=== PATIENT | male | born 1975 | race Hispanic/Latino ===

== ENCOUNTER 2017-05-06 10:14 | Emergency (ER) | payer SELFPAY ==
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
[2017-05-06] MEDS ORDERED: NACL 0.9% 1000 ML 1,000 ML IV ONE (23:11)
[2017-05-07] MEDS ORDERED: ATIVAN IV ONE (00:29)
[2017-05-07] MEDS ORDERED: ATIVAN ONE (00:39)
[2017-05-07 00:56] VITALS: BP 133/85
== END 2017-05-07 01:12 | disposition home or self-care (01) ==
LOC: ED 10:14
DX: S00.12XA Contusion of left eyelid and periocular area, initial encounter (principal); S00.31XA Abrasion of nose, initial encounter; F10.20 Alcohol dependence, uncomplicated; Y08.89XA Assault by other specified means, initial encounter; Y93.9 Activity, unspecified; Y99.9 Unspecified external cause status; Y92.89 Other specified places as the place of occurrence of the external cause
CPT/HCPCS: 70450; 70486; 96361; 96374; 99284; J2060; J7030

== ENCOUNTER 2017-08-02 01:35 | Emergency (ER) | payer OTHER ==
[2017-08-02 03:29] LABS: Basophils % (Auto) 0.7 % (0.0-1.8); Eosinophils # (Auto) 0.1 K/mm3 (0.0-0.4); Eosinophils % (Auto) 1.3 % (0.0-4.3); Hematocrit 42.5 % (35.5-45.6); Hemoglobin 14.7 gm/dl (11.8-15.2); Lymphocytes # (Auto) 1.5 K/mm3 (1.2-5.4); Lymphocytes % (Auto) 24.2 % (13.4-35.0); Mean Corpuscular HGB Conc 35 % (32-34); Mean Corpuscular Hemoglobin 37 pg (28-32); Mean Corpuscular Volume 107 fl (84-94); Monocytes # (Auto) 0.7 K/mm3 (0.0-0.8); Monocytes % (Auto) 11.3 % (0.0-7.3); Platelet Count 46 K/mm3 (140-440); Red Blood Count 3.98 M/mm3 (3.65-5.03); Red Cell Distribution Width 14.2 % (13.2-15.2)
[2017-08-02] MEDS ORDERED: ZOFRAN ODT PO ONE (03:33)
[2017-08-02] MEDS ORDERED: ZOFRAN ODT ONE (03:36)
--- NOTE | 2017-08-02 03:37 | XRay Report ---
FINAL REPORT PROCEDURE: XR RIBS UNI W PA CHEST 3+V RT TECHNIQUE: RIGHT rib radiographs, 3 views of the ribs, including PA chest. HISTORY: right rib pain COMPARISON: No prior studies are available for comparison. FINDINGS: Heart: Normal. Mediastinum/Vessels: Normal. Lungs: Normal. Pleural space: Normal. Pneumothorax: None. Bony thorax/ribs: There are fractures of right ribs numbers 7 and 8. IMPRESSION: Fractures of right ribs numbers 7 and 8. There is no pneumothorax or pulmonary contusion.
[2017-08-02 03:48] LABS: BUN/Creatinine Ratio 20; Blood Urea Nitrogen 12 mg/dL (9-20); Calcium 9.2 mg/dL (8.4-10.2); Hemolysis Index 12
[2017-08-02] MEDS ORDERED: MORPHINE IV ONE (07:11)
[2017-08-02] MEDS ORDERED: ATIVAN IV ONE (07:11)
[2017-08-02] MEDS ORDERED: XANAX PO ONE (07:12)
[2017-08-02] MEDS ORDERED: VITAMIN B-1 100 MG, FOLVITE 1 MG, INFUVITE 10 ML in NACL 0.9% 1000 ML 1,000 ML IV ONE (08:30)
--- NOTE | 2017-08-02 09:14 | Emergency Department Report ---
HPI - General Chief Complaint: Pain General Time Seen by Provider: 08/02/17 06:55 - HPI HPI: 41 year old male with a past medical history of alcohol abuse and thrombocytopenia. Presents to the hospital complaining of pain to right ribs 4 days. Patient presents with bruising to his right lower ribs but repeatedly denies fall but states he sleeps on a hard floor. Pain is sharp, constant, worse and movement, palpation, inspiration or rate is 7/10 in intensity. Patient has a history of alcohol abuse with last drink at 11 PM last night. Patient states the past 1-2 days he has had occasional blood blood-tinged sputum. Denies fever, trauma, fall, headache, abdominal pain, or neck pain. Staff noted positive EtOH on breath upon arrival to the ED ED Past Medical Hx - Past Medical History Additional medical history: Thrombocytopenia. alcohol abuse - Surgical History Past Surgical History?: No - Social History Smoking Status: Never Smoker Substance Use Type: None - Medications Home Medications: Home Medications Medication Instructions Recorded Confirmed Last Taken Type Folic Acid 1 mg PO DAILY 08/02/17 08/02/17 Unknown History HYDROcodone/APAP 5-325 [Tabor 1 each PO Q6HR PRN #15 tablet 08/02/17 Unknown Rx 5/325] ED Review of Systems ROS: Stated complaint: COUGHING Other details as noted in HPI Comment: All other systems reviewed and negative Other: Constitutional: No fevers chills Eyes: No eye pain visual changes ENT: No ear pain or throat pain Neck: Denies pain Respiratory: Denies wheezing shortness of breath Cardiovascular: As per HPI GI: Denies abdominal pain, nausea, vomiting, diarrhea : Denies dysuria Musculoskeletal: Denies back pain Skin: Denies rash, lesions, erythema Neurologic: Denies headache, numbness, weakness Psychiatric: Denies suicidal ideation, hallucinations Physical Exam - Physical Exam Vital Signs: Vital Signs 08/02/17 08/02/17 08/02/17 02:41 04:30 04:45 Temperature 97.5 F L Pulse Rate 117 H 99 H 130 H Respiratory 20 15 21 Rate Blood Pressure 149/111 117/84 117/84 Blood Pressure [Left] O2 Sat by Pulse 97 94 Oximetry 08/02/17 08/02/17 08/02/17 05:00 05:15 05:30 Temperature Pulse Rate 97 H 95 H 99 H Respiratory 13 14 27 H Rate Blood Pressure 107/67 107/67 95/56 Blood Pressure [Left] O2 Sat by Pulse Oximetry 08/02/17 08/02/17 08/02/17 05:45 06:45 07:05 Temperature 98.9 F Pulse Rate 97 H 105 H 108 H Respiratory 16 15 18 Rate Blood Pressure 95/56 92/57 Blood Pressure 100/65 [Left] O2 Sat by Pulse 97 Oximetry 08/02/17 08/02/17 08/02/17 07:16 07:30 08:00 Temperature Pulse Rate Respiratory Rate Blood Pressure 108/73 104/73 Blood Pressure [Left] O2 Sat by Pulse 93 95 94 Oximetry 08/02/17 08/02/17 08/02/17 08:15 08:31 09:00 Temperature Pulse Rate 109 H 90 Respiratory 16 16 14 Rate Blood Pressure 127/70 91/62 Blood Pressure [Left] O2 Sat by Pulse 92 92 Oximetry Physical Exam: General: No limitations, patient is alert in no acute distress Head exam: Atraumatic, normocephalic Eyes exam: Normal appearance ENT: Moist mucous membrane, normal oropharynx Neck exam: Normal inspection, full range of motion, no meningismus nontender Respiratory exam: Clear to auscultation bilateral, no wheezes, rales, crackles Cardiovascular: Normal rate and rhythm, bruising to her right lower ribs with tenderness to palpation Abdomen: Soft, nondistended, and nontender, with normal bowel sounds, no rebound, or guarding Extremity: Full range of motion normal inspection no deformity Back: Normal Inspection, full range of motion, no tenderness Neurologic: Alert, oriented x3, cranial nerves intact, no motor or sensory deficit Psychiatric: normal affect, normal mood Skin: Warm, dry, intact ED Course Vital Signs 08/02/17 08/02/17 08/02/17 02:41 04:30 04:45 Temperature 97.5 F L Pulse Rate 117 H 99 H 130 H Respiratory 20 15 21 Rate Blood Pressure 149/111 117/84 117/84 Blood Pressure [Left] O2 Sat by Pulse 97 94 Oximetry 08/02/17 08/02/17 08/02/17 05:00 05:15 05:30 Temperature Pulse Rate 97 H 95 H 99 H Respiratory 13 14 27 H Rate Blood Pressure 107/67 107/67 95/56 Blood Pressure [Left] O2 Sat by Pulse Oximetry 08/02/17 08/02/17 08/02/17 05:45 06:45 07:05 Temperature 98.9 F Pulse Rate 97 H 105 H 108 H Respiratory 16 15 18 Rate Blood Pressure 95/56 92/57 Blood Pressure 100/65 [Left] O2 Sat by Pulse 97 Oximetry 08/02/17 08/02/17 08/02/17 07:16 07:30 08:00 Temperature Pulse Rate Respiratory Rate Blood Pressure 108/73 104/73 Blood Pressure [Left] O2 Sat by Pulse 93 95 94 Oximetry 08/02/17 08/02/17 08/02/17 08:15 08:31 09:00 Temperature Pulse Rate 109 H 90 Respiratory 16 16 14 Rate Blood Pressure 127/70 91/62 Blood Pressure [Left] O2 Sat by Pulse 92 92 Oximetry - Reevaluation(s) Reevaluation #1: 08/02/17 10:18 Patient treated in the ED with Xanax, morphine, Zofran, and banana bag. Pain and tachycardia improved with ED treatment. No signs of acute alcohol withdrawal at this time ED Medical Decision Making - Lab Data Result diagrams: 08/02/17 03:18 08/02/17 03:18 Lab Results 08/02/17 08/02/17 Range/Units 03:18 03:18 WBC 6.2 (4.5-11.0) K/mm3 RBC 3.98 (3.65-5.03) M/mm3 Hgb 14.7 (11.8-15.2) gm/dl Hct 42.5 (35.5-45.6) % MCV 107 H (84-94) fl MCH 37 H (28-32) pg MCHC 35 H (32-34) % RDW 14.2 (13.2-15.2) % Plt Count 46 L (140-440) K/mm3 Lymph % (Auto) 24.2 (13.4-35.0) % [place] % (Auto) 11.3 H (0.0-7.3) % Eos % (Auto) 1.3 (0.0-4.3) % Baso % (Auto) 0.7 (0.0-1.8) % Lymph # 1.5 (1.2-5.4) K/mm3 [place] # 0.7 (0.0-0.8) K/mm3 Eos # 0.1 (0.0-0.4) K/mm3 Baso # 0.0 (0.0-0.1) K/mm3 Seg Neutrophils % 62.5 (40.0-70.0) % Seg Neutrophils # 3.9 (1.8-7.7) K/mm3 Sodium 144 (137-145) mmol/L Potassium 4.1 (3.6-5.0) mmol/L Chloride 98.3 (98-107) mmol/L Carbon Dioxide 25 (22-30) mmol/L Anion Gap 25 mmol/L BUN 12 (9-20) mg/dL Creatinine 0.6 L (0.8-1.5) mg/dL Estimated GFR > 60 ml/min BUN/Creatinine Ratio 20 % Glucose 91 (75-100) mg/dL Calcium 9.2 (8.4-10.2) mg/dL - Radiology Data Radiology results: report reviewed Chest x-ray with right rib series: Fracture of the right ribs 7 and 8 with no pneumothorax or pulmonary contusion - Medical Decision Making Patient appears to be sober, alert, and oriented at time of my evaluation. He continues to deny trauma or pain to other areas of his body. Patient has positive right rib fractures without long findings and has no signs of tachypnea or hypoxia. Tachycardia improved with benzos, IV pain medication, and IV fluids. Patient received banana bag. Patient provided incentive spirometer with teaching to be continued at home - Differential Diagnosis fracture, contusion, sprain Critical Care Time: No Critical care attestation.: If time is entered above; I have spent that time in minutes in the direct care of this critically ill patient, excluding procedure time. ED Disposition Clinical Impression: Ribs, multiple fractures, Thrombocytopenia, Alcohol abuse Disposition: DC-01 TO HOME OR SELFCARE Is pt being admited?: No Does the pt Need Aspirin: No Condition: Stable Instructions: Rib Fracture (ED), Abuse of Alcohol (ED) Additional Instructions: Take the medication as needed for pain. Use the incentive spirometer as instructed. Follow up with the doctor or clinic provided. Return is symptoms worsen Prescriptions: HYDROcodone/APAP 5-325 [Tabor 5/325] 1 each PO Q6HR PRN #15 tablet PRN Reason: Pain Referrals: [facility] [Provider Group] - 3-5 Days MD Peter [Other] - 3-5 Days (for help with alcohol abuse ) Time of Disposition: 10:22
[2017-08-02 10:24] VITALS: BP 100/64
== END 2017-08-02 10:38 | disposition home or self-care (01) ==
LOC: ED 01:35
DX: S22.41XA Multiple fractures of ribs, right side, initial encounter for closed fracture (principal); D69.6 Thrombocytopenia, unspecified; X58.XXXA Exposure to other specified factors, initial encounter; Y93.89 Activity, other specified; Y92.89 Other specified places as the place of occurrence of the external cause; Y99.8 Other external cause status
CPT/HCPCS: 36415; 71101; 80048; 85025; 96365; 96366; 96375; 99284; J2270; J3411; J7030; Q0162

== ENCOUNTER 2017-08-03 17:04 | Inpatient (IN) | payer OTHER ==
[2017-08-03 18:35] LABS: Basophils % (Auto) 0.7 % (0.0-1.8); Eosinophils % (Auto) 0.7 % (0.0-4.3); Hematocrit 37.8 % (35.5-45.6); Hemoglobin 12.8 gm/dl (11.8-15.2); Lymphocytes # (Auto) 0.8 K/mm3 (1.2-5.4); Lymphocytes % (Auto) 15.7 % (13.4-35.0); Mean Corpuscular HGB Conc 34 % (32-34); Mean Corpuscular Hemoglobin 37 pg (28-32); Mean Corpuscular Volume 109 fl (84-94); Monocytes # (Auto) 0.5 K/mm3 (0.0-0.8); Monocytes % (Auto) 10.2 % (0.0-7.3); Red Blood Count 3.46 M/mm3 (3.65-5.03); Red Cell Distribution Width 14.1 % (13.2-15.2)
[2017-08-03 18:37] LABS: Platelet Count 38 K/mm3 (140-440)
[2017-08-03 18:56] LABS: Alanine Aminotransferase 82 units/L (7-56); Albumin 4.6 g/dL (3.9-5); BUN/Creatinine Ratio 13; Blood Urea Nitrogen 8 mg/dL (9-20); Calcium 8.9 mg/dL (8.4-10.2); Hemolysis Index 6
[2017-08-03 20:27] LABS: Bilirubin,Urine NEG (Negative); Blood,Urine SM (Negative); Color,Urine Yellow (Yellow); Nitrite,Urine NEG (Negative); Protein,Urine <15 mg/dL mg/dL (Negative); Urobilinogen,Urine < 2.0 mg/dL (<2.0)
[2017-08-03 20:28] LABS: RBC,Urine < 1.0 /HPF (0.0-6.0); WBC,Urine < 1.0 /HPF (0.0-6.0)
[2017-08-04] MEDS ORDERED: ATIVAN IV ONE (06:48)
[2017-08-04] MEDS ORDERED: ATIVAN IV PRN ×4 (06:48→09:40)
[2017-08-04] MEDS ORDERED: VITAMIN B-1 100 MG, FOLVITE 1 MG, INFUVITE 10 ML in NACL 0.9% 1000 ML 1,000 ML IV ONE (06:48)
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
--- NOTE | 2017-08-04 07:38 | Cat Scan Report ---
CT scan of head without IV contrast: History: History of EtOH. Findings: Ventricles are normal in size and midline in location. Mild volume loss. No evidence of acute ischemia, hemorrhage or mass. No extra-axial fluid collection. Normal brainstem and cerebellum. Normal sinuses and master air cells. Impression: No acute intracranial abnormality.
--- NOTE | 2017-08-04 07:39 | Cat Scan Report ---
CT scan of chest with IV contrast: History: History of EtOH, bruising. Thoracic or ecchymosis. Findings: No endobronchial or mediastinal mass. No mediastinal, hilar or axillary adenopathy. Subcentimeter lymph nodes are identified in the mediastinum probably reactive. No pleural pericardial effusion. Normal lung parenchyma. No discrete nodularity consolidation or pneumothorax. Impression: Essentially negative CT scan of chest. Incidentally noted fatty liver.
--- NOTE | 2017-08-04 07:41 | Cat Scan Report ---
CT scan of abdomen and pelvis with IV contrast: History: History of EtOH bruising. Findings: A fatty liver. Normal gallbladder. Normal pancreas and spleen. Normal adrenals. Hypodensity in right kidney measuring 1.7 cm in diameter suggestive of cyst. Normal bladder. No free intraperitoneal fluid. No evidence of adenopathy. Normal aorta. No evidence of appendicitis or diverticulitis. Gaseous colon with moderate volume stool in colon. Impression: Fatty liver. Cyst right kidney.
[2017-08-04 08:12] LABS: Magnesium 1.3 mg/dL (1.7-2.3)
[2017-08-04] MEDS ORDERED: MAGNESIUM SULFATE 2GM/50ML 2 GM/50 ML BAG IV ONE (08:24)
[2017-08-04] MEDS ORDERED: TYLENOL PO PRN (09:37)
[2017-08-04] MEDS ORDERED: DULCOLAX PR PRN (09:37)
[2017-08-04] MEDS ORDERED: MORPHINE IV PRN ×2 (09:37)
[2017-08-04] MEDS ORDERED: ZOFRAN IV PRN (09:37)
[2017-08-04] MEDS ORDERED: NORCO 5/325 PO PRN (09:37)
[2017-08-04] MEDS ORDERED: MILK OF MAGNESIA PO PRN (09:37)
--- NOTE | 2017-08-04 09:37 | History and Physical Report ---
History of Present Illness Date of examination: 08/04/17 Date of admission: 08/04/2017 Chief complaint: Chief complaint: Ecchymosis all over. 2) EtOH dependence. History of present illness: History of Present Illness:42-year-old male comes in for ecchymosis all over his body. Patient has been drinking about 4-6 drinks every day for the past few months. Patient recently had trauma with and right-sided fractures. Ecchymosis has been happening spontaneously. No trauma. Has been drinking on a regular basis moderate to heavily.No shortness of breath.slightly anxious. Past Medical History Previous Medical History?: Yes Additional medical history: Thrombocytopenia. alcohol abuse - Surgical History Past Surgical History?: No - Social History Smoking Status: Never Smoker Substance Use Type: Alcohol Family history:hypertension - Medications Home Medications: Home Medications Medication Instructions Recorded Confirmed Last Taken Type Folic Acid 1 mg PO DAILY 08/02/17 08/02/17 Unknown History HYDROcodone/APAP 5-325 [[place] 1 each PO Q6HR PRN #15 tablet 08/02/17 Unknown Rx 5/325] Medications and Allergies Allergies Allergy/AdvReac Type Severity Reaction Status Date / Time No Known Allergies Allergy Verified 08/03/17 18:12 Home Medications Medication Instructions Recorded Confirmed Last Taken Type Folic Acid 1 mg PO DAILY 08/02/17 08/04/17 Unknown History HYDROcodone/APAP 5-325 [[place] 1 each PO Q6HR PRN #15 tablet 08/02/17 08/04/17 Unknown Rx 5/325] Active Meds: Active Medications Thiamine HCl 100 mg/ Folic Acid 1 mg/ Multivitamins/Minerals 10 ml/ Sodium Chloride 1,011.2 mls @ 250 mls/hr IV ONCE.ED ONE Stop: 08/04/17 10:50 Last Admin: 08/04/17 07:42 Dose: 250 mls/hr Lorazepam (Ativan) 2 mg IV Q1HR PRN PRN Reason: CIWA-Ar 8-15 Lorazepam (Ativan) 4 mg IV Q1HR PRN PRN Reason: CIWA-Ar 16-25 Lorazepam (Ativan) 4 mg IV Q15MIN PRN PRN Reason: CIWA-Ar >25 Review of Systems All systems: negative Hematologic/Lymphatic: easy bruising Exam - Constitutional Vitals: Temp Pulse Resp BP Pulse Ox 99.2 F 100 H 13 138/91 96 08/04/17 07:36 08/04/17 08:00 08/04/17 08:00 08/04/17 08:00 08/04/17 08:00 General appearance: Present: no acute distress, well-nourished - EENT Eyes: Present: PERRL ENT: hearing intact, clear oral mucosa - Neck Neck: Present: supple, normal ROM - Respiratory Respiratory effort: normal Respiratory: bilateral: CTA - Cardiovascular Heart rate: 70 Rhythm: regular (70) Heart Sounds: Present: S1 & S2. Absent: rub, click - Extremities Extremities: no ischemia, pulses intact, pulses symmetrical, No edema Peripheral Pulses: within normal limits - Abdominal General gastrointestinal: Present: soft, non-tender, non-distended, normal bowel sounds Male genitourinary: Present: normal - Rectal Rectal Exam: deferred - Integumentary Integumentary: Present: clear, warm, dry, erythema (ecchymosis all over) - Musculoskeletal Musculoskeletal: gait normal, strength equal bilaterally - Psychiatric Psychiatric: appropriate mood/affect, intact judgment & insight - Neurologic Neurologic: CNII-XII intact, moves all extremities - Allied Health Allied health notes reviewed: nursing, case management Results - Labs CBC & Chem 7: 08/03/17 18:18 08/03/17 18:18 Labs: Laboratory Last Values WBC 5.0 K/mm3 (4.5-11.0) 08/03/17 18:18 RBC 3.46 M/mm3 (3.65-5.03) L 08/03/17 18:18 Hgb 12.8 gm/dl (11.8-15.2) 08/03/17 18:18 Hct 37.8 % (35.5-45.6) 08/03/17 18:18 MCV 109 fl (84-94) H 08/03/17 18:18 MCH 37 pg (28-32) H 08/03/17 18:18 MCHC 34 % (32-34) 08/03/17 18:18 RDW 14.1 % (13.2-15.2) 08/03/17 18:18 Plt Count 38 K/mm3 (140-440) L 08/03/17 18:18 Lymph % (Auto) 15.7 % (13.4-35.0) 08/03/17 18:18 [place] % (Auto) 10.2 % (0.0-7.3) H 08/03/17 18:18 Eos % (Auto) 0.7 % (0.0-4.3) 08/03/17 18:18 Baso % (Auto) 0.7 % (0.0-1.8) 08/03/17 18:18 Lymph # 0.8 K/mm3 (1.2-5.4) L 08/03/17 18:18 [place] # 0.5 K/mm3 (0.0-0.8) 08/03/17 18:18 Eos # 0.0 K/mm3 (0.0-0.4) 08/03/17 18:18 Baso # 0.0 K/mm3 (0.0-0.1) 08/03/17 18:18 Seg Neutrophils % 72.7 % (40.0-70.0) H 08/03/17 18:18 Seg Neutrophils # 3.6 K/mm3 (1.8-7.7) 08/03/17 18:18 Sodium 140 mmol/L (137-145) 08/03/17 18:18 Potassium 4.1 mmol/L (3.6-5.0) 08/03/17 18:18 Chloride 96.4 mmol/L (98-107) L 08/03/17 18:18 Carbon Dioxide 26 mmol/L (22-30) 08/03/17 18:18 Anion Gap 22 mmol/L 08/03/17 18:18 BUN 8 mg/dL (9-20) L 08/03/17 18:18 Creatinine 0.6 mg/dL (0.8-1.5) L 08/03/17 18:18 Estimated GFR > 60 ml/min 08/03/17 18:18 BUN/Creatinine Ratio 13 % 08/03/17 18:18 Glucose 112 mg/dL (75-100) H 08/03/17 18:18 Calcium 8.9 mg/dL (8.4-10.2) 08/03/17 18:18 Magnesium 1.30 mg/dL (1.7-2.3) L 08/04/17 07:30 Total Bilirubin 0.80 mg/dL (0.1-1.2) 08/03/17 18:18 AST 168 units/L (5-40) H 08/03/17 18:18 ALT 82 units/L (7-56) H 08/03/17 18:18 Alkaline Phosphatase 82 units/L (35-129) 08/03/17 18:18 Total Creatine Kinase 224 units/L (55-170) H 08/04/17 07:30 Total Protein 6.8 g/dL (6.3-8.2) 08/03/17 18:18 Albumin 4.6 g/dL (3.9-5) 08/03/17 18:18 Albumin/Globulin Ratio 2.1 % 08/03/17 18:18 Urine Color Yellow (Yellow) 08/03/17 Unknown Urine Turbidity Clear (Clear) 08/03/17 Unknown Urine pH 5.0 (5.0-7.0) 08/03/17 Unknown Ur Specific [place] 1.005 (1.003-1.030) 08/03/17 Unknown Urine Protein <15 mg/dl mg/dL (Negative) 08/03/17 Unknown Urine Glucose (UA) Neg mg/dL (Negative) 08/03/17 Unknown Urine Ketones Neg mg/dL (Negative) 08/03/17 Unknown Urine Blood Sm (Negative) 08/03/17 Unknown Urine Nitrite Neg (Negative) 08/03/17 Unknown Urine Bilirubin Neg (Negative) 08/03/17 Unknown Urine Urobilinogen < 2.0 mg/dL (<2.0) 08/03/17 Unknown Ur Leukocyte Esterase Neg (Negative) 08/03/17 Unknown Urine WBC (Auto) < 1.0 /HPF (0.0-6.0) 08/03/17 Unknown Urine RBC (Auto) < 1.0 /HPF (0.0-6.0) 08/03/17 Unknown Blood Type A POSITIVE 08/03/17 18:25 Antibody Screen Negative 08/03/17 18:25 - Imaging and Cardiology Chest x-ray: report reviewed CT scan - abdomen: report reviewed (fatty liver right kidney cyst) CT scan - chest: report reviewed (no acute findings) CT Scan - head: report reviewed (no acute findings) Assessment and Plan Advance Directives: Yes (full code) VTE prophylaxis?: Mechanical Contraindication Mechanical VTE Prophylaxis: Contraindicated Plan of care discussed with patient/family: Yes - Patient Problems (1) Thrombocytopenia Current Visit: Yes Status: Acute Plan to address problem: secondary to EtOH dependence and bone marrow suppression. Hematology consulted. No platelet transfusion at this point unless patient has active bleeding. Monitor platelet count (2) Alcohol withdrawal Current Visit: Yes Status: Acute Qualifiers: Complication of substance-induced condition: with delirium Qualified Code(s ): F10.231 - Alcohol dependence with withdrawal delirium Plan to address problem: patient has a chance of developing delirium tremens. CIWA protocol initiated. IV Protonix initiated.Mental health consult requested for possible detox from alcohol (3) Transaminitis Current Visit: Yes Status: Acute Plan to address problem: secondary to alcohol. Acute hepatitis profile orderedwhich I expected to be normal (4) Alcohol dependence Current Visit: Yes Status: Chronic Qualifiers: Substance use status: uncomplicated Qualified Code(s): F10.20 - Alcohol dependence, uncomplicated Plan to address problem: patient counseled May need psychiatric facility admission for detox from alcohol (5) DVT prophylaxis Current Visit: Yes Status: Acute Plan to address problem: SCDs only
[2017-08-04] MEDS: FOLVITE PO SCH (10:21)
[2017-08-04] MEDS: LOVENOX SUB-Q SCH (10:22)
[2017-08-04 10:28] LABS: INR 0.92 (0.87-1.13); Magnesium 1.8 mg/dL (1.7-2.3)
[2017-08-04 10:29] LABS: Partial Thromboplastin Time 28.7 Sec. (24.2-36.6)
--- NOTE | 2017-08-04 12:05 | Consultation ---
History of Present Illness - Reason for Consult Consult date: 08/04/17 Reason for consult: Mental Health Evaluation Requesting physician: SOLIS AGUILAR - Chief Complaint Chief complaint: "I like alcohol" - History of Present Psychiatric Illness This is a 42-year-old white male. The patient recently was seen in this department for reevaluation of rib pain, and was presumptively diagnosed with multiple right-sided rib fractures. Psychiatry was consulted to see patient ( possible alcohol abuse). Today patient is calm and cooperative during the assessment. He stated that he do not remember how he injured his ribs. He did say he was drinking "heavy" the day the injury occurred. He stated that he been drinking alcohol for 20 plus years. He stated that he drink everyday. He stated that he drink alcohol because he like the taste. He denies self medicating with alcohol to mask a mood do (bipolar/depression). He stated that he would like to stop drinking because he is aware the damage it cause to the body. He denies sleep disturbance and a poor appetite. He denies SI/HI's and AVH's. He denies recreational drug use. Medications and Allergies Allergies Allergy/AdvReac Type Severity Reaction Status Date / Time No Known Allergies Allergy Verified 08/03/17 18:12 Home Medications Medication Instructions Recorded Confirmed Last Taken Type Folic Acid 1 mg PO DAILY 08/02/17 08/04/17 Unknown History HYDROcodone/APAP 5-325 [[place] 1 each PO Q6HR PRN #15 tablet 08/02/17 08/04/17 Unknown Rx 5/325] Active Meds: Active Medications Acetaminophen (Tylenol) 650 mg PO Q4H PRN PRN Reason: Pain MILD(1-3)/Fever >100.5/[place] Acetaminophen/Hydrocodone Bitart ([place] 5/325) 1 each PO Q6HR PRN PRN Reason: Pain Bisacodyl (Dulcolax) 10 mg CO QDAY PRN PRN Reason: Constipation unrelieved by MOM Enoxaparin Sodium (Lovenox) 40 mg SUB-Q QDAY JOHN Last Admin: 08/04/17 10:22 Dose: 40 mg Folic Acid (Folvite) 1 mg PO DAILY [facility] Last Admin: 08/04/17 10:21 Dose: 1 mg Dextrose/Sodium Chloride (D5ns) 1,000 mls @ 100 mls/hr IV DIRECT JOHN Lorazepam (Ativan) 2 mg IV Q1HR PRN PRN Reason: CIWA-Ar 8-15 Lorazepam (Ativan) 4 mg IV Q1HR PRN PRN Reason: CIWA-Ar 16-25 Lorazepam (Ativan) 4 mg IV Q15MIN PRN PRN Reason: CIWA-Ar >25 Lorazepam (Ativan) 2 mg IV Q1H PRN PRN Reason: CIWA-Ar 8-15 Magnesium Hydroxide (Milk Of Magnesia) 30 ml PO Q4H PRN PRN Reason: Constipation Morphine Sulfate (Morphine) 2 mg IV Q4H PRN PRN Reason: Pain, Moderate (4-6) Morphine Sulfate (Morphine) 4 mg IV Q4H PRN PRN Reason: Pain , Severe (7-10) Ondansetron HCl (Zofran) 4 mg IV Q8H PRN PRN Reason: N/V unrelieved by Reglan Past psychiatric history - Past Medical History Past Medical History: other (Recently Dx with 2 fx ribs) Past Surgical History: No surgical history - past Psychiatric treatment and history psychiatric treatment history: Denies a psy hx and fam psy hx. - Social History Social history: Lives alone Mental Status Exam - Vital signs Last Vital Signs Temp 99.2 F 08/04/17 07:36 Pulse 87 08/04/17 10:31 Resp 14 08/04/17 10:31 BP 128/85 08/04/17 10:31 Pulse Ox 96 08/04/17 10:31 - Exam Narrative exam: MSE: Appearance: calm, cooperative Behavior: good eye contact Speech: regular rate and tone Mood: "okay" Affect: congruent to mood Thought Process: circumstantial Thought Content: denies SI/HI's and AVH's Motor Activity: ambulatory Cognition: A/Ox3 Insight: fair Judgment: fair Results Result Diagrams: 08/03/17 18:18 08/03/17 18:18 Abnormal lab results 08/03/17 08/03/17 08/04/17 Range/Units 18:18 18:18 07:30 RBC 3.46 L (3.65-5.03) M/mm3 MCV 109 H (84-94) fl MCH 37 H (28-32) pg Plt Count 38 L (140-440) K/mm3 [place] % (Auto) 10.2 H (0.0-7.3) % Lymph # 0.8 L (1.2-5.4) K/mm3 Seg Neutrophils % 72.7 H (40.0-70.0) % Chloride 96.4 L (98-107) mmol/L BUN 8 L (9-20) mg/dL Creatinine 0.6 L (0.8-1.5) mg/dL Glucose 112 H (75-100) mg/dL Phosphorus (2.5-4.5) mg/dL Magnesium 1.30 L (1.7-2.3) mg/dL AST 168 H (5-40) units/L ALT 82 H (7-56) units/L Total Creatine Kinase 224 H (55-170) units/L 08/04/17 Range/Units 09:53 RBC (3.65-5.03) M/mm3 MCV (84-94) fl MCH (28-32) pg Plt Count (140-440) K/mm3 [place] % (Auto) (0.0-7.3) % Lymph # (1.2-5.4) K/mm3 Seg Neutrophils % (40.0-70.0) % Chloride (98-107) mmol/L BUN (9-20) mg/dL Creatinine (0.8-1.5) mg/dL Glucose (75-100) mg/dL Phosphorus 2.20 L (2.5-4.5) mg/dL Magnesium (1.7-2.3) mg/dL AST (5-40) units/L ALT (7-56) units/L Total Creatine Kinase (55-170) units/L All other labs normal. Assessment and Plan Assessment and plan: Impression: Alcohol Use DO. Today patient is calm and cooperative during the assessment. Mild tremors noted during the assessment. Elevated AST/ALT. PLT 38 trending down. DDx: R/O MDD Recommendation/Plan: Continue CIWA. Patient given outpatient rehab services for [facility].
[2017-08-04] MEDS: D5NS 1,000 ML IV SCH ×2 (13:36→22:19)
--- NOTE | 2017-08-04 17:37 | Hem/Onc Consultation ---
History of Present Illness - Reason for Consult Consult date: 08/04/17 - History of Present Illness dictated follow counts hold off transfusion unless plts below 20 or active bleeding Past History Past Medical History: other (Recently Dx with 2 fx ribs) Past Surgical History: No surgical history Social history: Lives alone Medications and Allergies Allergies Allergy/AdvReac Type Severity Reaction Status Date / Time No Known Allergies Allergy Verified 08/03/17 18:12 Home Medications Medication Instructions Recorded Confirmed Last Taken Type Folic Acid 1 mg PO DAILY 08/02/17 08/04/17 Unknown History HYDROcodone/APAP 5-325 [Motley 1 each PO Q6HR PRN #15 tablet 08/02/17 08/04/17 Unknown Rx 5/325] Active Meds: Active Medications Acetaminophen (Tylenol) 650 mg PO Q4H PRN PRN Reason: Pain MILD(1-3)/Fever >100.5/NELSON Acetaminophen/Hydrocodone Bitart (Motley 5/325) 1 each PO Q6HR PRN PRN Reason: Pain Bisacodyl (Dulcolax) 10 mg MA QDAY PRN PRN Reason: Constipation unrelieved by MOM Enoxaparin Sodium (Lovenox) 40 mg SUB-Q QDAY [facility] Last Admin: 08/04/17 10:22 Dose: 40 mg Folic Acid (Folvite) 1 mg PO DAILY [facility] Last Admin: 08/04/17 10:21 Dose: 1 mg Dextrose/Sodium Chloride (D5ns) 1,000 mls @ 100 mls/hr IV DIRECT [facility] Last Admin: 08/04/17 13:36 Dose: 100 mls/hr Lorazepam (Ativan) 2 mg IV Q1HR PRN PRN Reason: CIWA-Ar 8-15 Lorazepam (Ativan) 4 mg IV Q1HR PRN PRN Reason: CIWA-Ar 16-25 Lorazepam (Ativan) 4 mg IV Q15MIN PRN PRN Reason: CIWA-Ar >25 Lorazepam (Ativan) 2 mg IV Q1H PRN PRN Reason: CIWA-Ar 8-15 Magnesium Hydroxide (Milk Of Magnesia) 30 ml PO Q4H PRN PRN Reason: Constipation Morphine Sulfate (Morphine) 2 mg IV Q4H PRN PRN Reason: Pain, Moderate (4-6) Morphine Sulfate (Morphine) 4 mg IV Q4H PRN PRN Reason: Pain , Severe (7-10) Ondansetron HCl (Zofran) 4 mg IV Q8H PRN PRN Reason: N/V unrelieved by Reglan Exam - Constitutional Vitals: Last Vital Signs Temp 99.7 F H 08/04/17 15:11 Pulse 112 H 08/04/17 15:11 Resp 20 08/04/17 15:11 BP 126/92 08/04/17 15:11 Pulse Ox 95 08/04/17 15:11 Results - Labs lab Results: Laboratory Results - last 24 hr 08/03/17 08/03/17 08/03/17 18:18 18:18 18:25 WBC 5.0 RBC 3.46 L Hgb 12.8 Hct 37.8 MCV 109 H MCH 37 H MCHC 34 RDW 14.1 Plt Count 38 L Lymph % (Auto) 15.7 [place] % (Auto) 10.2 H Eos % (Auto) 0.7 Baso % (Auto) 0.7 Lymph # 0.8 L Ida # 0.5 Eos # 0.0 Baso # 0.0 Seg Neutrophils % 72.7 H Seg Neutrophils # 3.6 PT INR APTT Sodium 140 Potassium 4.1 Chloride 96.4 L Carbon Dioxide 26 Anion Gap 22 BUN 8 L Creatinine 0.6 L Estimated GFR > 60 BUN/Creatinine Ratio 13 Glucose 112 H Calcium 8.9 Phosphorus Magnesium Total Bilirubin 0.80 AST 168 H ALT 82 H Alkaline Phosphatase 82 Ammonia Total Creatine Kinase Total Protein 6.8 Albumin 4.6 Albumin/Globulin Ratio 2.1 Urine Color Urine Turbidity Urine pH Ur Specific [place] Urine Protein Urine Glucose (UA) Urine Ketones Urine Blood Urine Nitrite Urine Bilirubin Urine Urobilinogen Ur Leukocyte Esterase Urine WBC (Auto) Urine RBC (Auto) Blood Type A POSITIVE Antibody Screen Negative 08/03/17 08/04/17 08/04/17 Unknown 07:30 09:53 WBC RBC Hgb Hct MCV MCH MCHC RDW Plt Count Lymph % (Auto) [place] % (Auto) Eos % (Auto) Baso % (Auto) Lymph # [place]da # Eos # Baso # Seg Neutrophils % Seg Neutrophils # PT 12.8 INR 0.92 APTT 28.7 Sodium Potassium Chloride Carbon Dioxide Anion Gap BUN Creatinine Estimated GFR BUN/Creatinine Ratio Glucose Calcium Phosphorus Magnesium 1.30 L Total Bilirubin AST ALT Alkaline Phosphatase Ammonia Total Creatine Kinase 224 H Total Protein Albumin Albumin/Globulin Ratio Urine Color Yellow Urine Turbidity Clear Urine pH 5.0 Ur Specific [place] 1.005 Urine Protein <15 mg/dl Urine Glucose (UA) Neg Urine Ketones Neg Urine Blood Sm Urine Nitrite Neg Urine Bilirubin Neg Urine Urobilinogen < 2.0 Ur Leukocyte Esterase Neg Urine WBC (Auto) < 1.0 Urine RBC (Auto) < 1.0 Blood Type Antibody Screen 08/04/17 08/04/17 09:53 09:53 WBC RBC Hgb Hct MCV MCH MCHC RDW Plt Count Lymph % (Auto) [place]da % (Auto) Eos % (Auto) Baso % (Auto) Lymph # [place] # Eos # Baso # Seg Neutrophils % Seg Neutrophils # PT INR APTT Sodium Potassium Chloride Carbon Dioxide Anion Gap BUN Creatinine Estimated GFR BUN/Creatinine Ratio Glucose Calcium Phosphorus 2.20 L Magnesium 1.80 Total Bilirubin AST ALT Alkaline Phosphatase Ammonia 38.0 Total Creatine Kinase Total Protein Albumin 4.0 Albumin/Globulin Ratio Urine Color Urine Turbidity Urine pH Ur Specific [place] Urine Protein Urine Glucose (UA) Urine Ketones Urine Blood Urine Nitrite Urine Bilirubin Urine Urobilinogen Ur Leukocyte Esterase Urine WBC (Auto) Urine RBC (Auto) Blood Type Antibody Screen
[2017-08-04 21:58] LABS: Iron 195 ug/dL (49-181)
[2017-08-04 23:16] LABS: Total Iron Binding Capacity 199 mcg/dL (250-450)
[2017-08-05 05:32] LABS: Hematocrit 34.3 % (35.5-45.6); Hemoglobin 11.9 gm/dl (11.8-15.2); Mean Corpuscular HGB Conc 35 % (32-34); Mean Corpuscular Hemoglobin 37 pg (28-32); Mean Corpuscular Volume 108 fl (84-94); Red Blood Count 3.19 M/mm3 (3.65-5.03); Red Cell Distribution Width 13.9 % (13.2-15.2)
[2017-08-05 05:36] LABS: Platelet Count 34 K/mm3 (140-440)
[2017-08-05 05:42] LABS: Alanine Aminotransferase 69 units/L (7-56); Albumin 3.9 g/dL (3.9-5); BUN/Creatinine Ratio 8; Blood Urea Nitrogen 5 mg/dL (9-20); Calcium 8.5 mg/dL (8.4-10.2); Hemolysis Index 5
[2017-08-05 05:50] LABS: Hepatitis A Antibody IgM Non-Reactive (NonReactive); Hepatitis B Core IgM Non-Reactive (NonReactive); Hepatitis B Surface Antigen Non-Reactive (Negative); Hepatitis C Virus Antibody Non-Reactive (NonReactive)
[2017-08-05 08:00] LABS: Band Neutrophils # (Manual) 0.3 K/mm3; Total Cells Counted 100
[2017-08-05 08:01] LABS: Anisocytosis 1+
[2017-08-05 08:02] LABS: Stomatocytes 1+
[2017-08-05 08:03] LABS: Platelet Estimate Consistent w Auto; Target Cells Few
[2017-08-05] MEDS: D5NS 1,000 ML IV SCH ×2 (08:19→17:58)
[2017-08-05] MEDS: FOLVITE PO SCH (09:41)
[2017-08-05] MEDS: LOVENOX SUB-Q SCH (09:42)
--- NOTE | 2017-08-05 12:00 | Progress Note ---
Assessment and Plan Alcohol abuse: Presently he does not have any withdrawal symptoms Continue Cipro protocol Thrombocytopenia: Likely related to alcoholism Platelets are 34,000 He has ecchymosis on the abdomen and chest but no overt bleeding at this time Transaminitis: Secondary to alcohol disorder Macrocytosis: 2/2 ETOH abuse Subjective Date of service: 08/05/17 Interval history: Patient is awake alert and oriented No apparent distress and offers no specific complaints 11 point review of systems is unremarkable Objective - Constitutional Vitals: Vital Signs - 12hr 08/05/17 08:07 Temperature 98.1 F Pulse Rate 105 H Respiratory 16 Rate Blood Pressure 139/101 O2 Sat by Pulse 97 Oximetry General appearance: Present: no acute distress - EENT Eyes: PERRL, EOM intact ENT: hearing intact, clear oral mucosa - Neck Neck: supple, normal ROM, no masses or JVD - Respiratory Respiratory effort: normal Respiratory: bilateral: CTA - Cardiovascular Rhythm: regular Heart Sounds: Present: S1 & S2 Extremities: No edema - Gastrointestinal General gastrointestinal: Present: soft, non-tender. Absent: hepatomegaly, splenomegaly Rectal Exam: deferred - Integumentary Integumentary: warm (ecchymosis of the abdomen, chest and back) - Neurologic Neurologic: moves all extremities - Psychiatric Psychiatric: appropriate mood/affect - Labs CBC & Chem 7: 08/05/17 04:56 08/05/17 04:56 Labs: Abnormal lab results 08/04/17 08/04/17 08/05/17 Range/Units 21:10 21:10 04:56 WBC 4.4 L (4.5-11.0) K/mm3 RBC 3.19 L (3.65-5.03) M/mm3 Hct 34.3 L (35.5-45.6) % MCV 108 H (84-94) fl MCH 37 H (28-32) pg MCHC 35 H (32-34) % Plt Count 34 L (140-440) K/mm3 Seg Neuts % (Manual) 71.0 H (40.0-70.0) % Lymphocytes % (Manual) 13.0 L (13.4-35.0) % Basophils % (Manual) 2.0 H (0.0-1.8) % Nucleated RBC % 3.0 H (0.0-0.9) % Lymphocytes # (Manual) 0.6 L (1.2-5.4) K/mm3 Potassium (3.6-5.0) mmol/L BUN (9-20) mg/dL Creatinine (0.8-1.5) mg/dL Glucose (75-100) mg/dL Iron 195 H (49-181) ug/dL TIBC 199 L (250-450) mcg/dL Ferritin 468.5 H (13.0-400.0) ng/mL Total Bilirubin (0.1-1.2) mg/dL AST (5-40) units/L ALT (7-56) units/L Total Protein (6.3-8.2) g/dL 08/05/17 Range/Units 04:56 WBC (4.5-11.0) K/mm3 RBC (3.65-5.03) M/mm3 Hct (35.5-45.6) % MCV (84-94) fl MCH (28-32) pg MCHC (32-34) % Plt Count (140-440) K/mm3 Seg Neuts % (Manual) (40.0-70.0) % Lymphocytes % (Manual) (13.4-35.0) % Basophils % (Manual) (0.0-1.8) % Nucleated RBC % (0.0-0.9) % Lymphocytes # (Manual) (1.2-5.4) K/mm3 Potassium 3.5 L (3.6-5.0) mmol/L BUN 5 L (9-20) mg/dL Creatinine 0.6 L (0.8-1.5) mg/dL Glucose 127 H (75-100) mg/dL Iron (49-181) ug/dL TIBC (250-450) mcg/dL Ferritin (13.0-400.0) ng/mL Total Bilirubin 1.70 H (0.1-1.2) mg/dL AST 117 H (5-40) units/L ALT 69 H (7-56) units/L Total Protein 6.2 L (6.3-8.2) g/dL
--- NOTE | 2017-08-05 13:18 | Hem/Onc Progress Note ---
Subjective Date of service: 08/05/17 Interval history: Patient was not in room, but platelet count stable. thrombocytopenia thought to be realted to acute ETOH - will repeat cbc in am Objective - Constitutional Vitals: Last Vital Signs Temp 98.1 F 08/05/17 08:07 Pulse 105 H 08/05/17 08:07 Resp 16 08/05/17 08:07 BP 139/101 08/05/17 08:07 Pulse Ox 97 08/05/17 08:07 - Labs Lab Results: Laboratory Results - last 24 hr 08/04/17 08/04/17 08/04/17 21:10 21:10 21:10 WBC RBC Hgb Hct MCV MCH MCHC RDW Plt Count [place] % (Auto) Add Manual Diff Total Counted Seg Neuts % (Manual) Band Neutrophils % Lymphocytes % (Manual) Reactive Lymphs % (Man) Monocytes % (Manual) Eosinophils % (Manual) Basophils % (Manual) Metamyelocytes % Myelocytes % Promyelocytes % Blast Cells % Nucleated RBC % Seg Neutrophils # Man Band Neutrophils # Lymphocytes # (Manual) Abs React Lymphs (Man) Monocytes # (Manual) Eosinophils # (Manual) Basophils # (Manual) Metamyelocytes # Myelocytes # Promyelocytes # Blast Cells # WBC Morphology Hypersegmented Neuts Hyposegmented Neuts Hypogranular Neuts Smudge Cells Toxic Granulation Toxic Vacuolation Dohle Bodies Pelger-Huet Anomaly Asaf Rods Platelet Estimate Clumped Platelets Plt Clumps, EDTA Large Platelets Giant Platelets Platelet Satelliting Plt Morphology Comment RBC Morphology Dimorphic RBCs Polychromasia Hypochromasia Poikilocytosis Anisocytosis Microcytosis Macrocytosis Spherocytes Pappenheimer Bodies Sickle Cells Target Cells Tear Drop Cells Ovalocytes Stomatocytes Helmet Cells Shetty-[place] Bodies [place] Rings [place] Cells Bite Cells Crenated Cell Elliptocytes Acanthocytes (Spur) Rouleaux Hemoglobin C Crystals Schistocytes Malaria parasites Percent Retic 1.73 Sesar Bodies Hem Pathologist Commnt Sodium Potassium Chloride Carbon Dioxide Anion Gap BUN Creatinine Estimated GFR BUN/Creatinine Ratio Glucose Calcium Iron 195 H TIBC 199 L Ferritin 468.5 H Total Bilirubin AST ALT Alkaline Phosphatase Total Protein Albumin Albumin/Globulin Ratio Vitamin B12 Folate Hepatitis A IgM Ab Hep Bs Antigen Hep B Core IgM Ab Hepatitis C Antibody 01/05/18 01/05/18 01/06/18 21:10 21:10 04:56 WBC 4.4 L RBC 3.19 L Hgb 11.9 Hct 34.3 L MCV 108 H MCH 37 H MCHC 35 H RDW 13.9 Plt Count 34 L [place] % (Auto) Territory Outside Sales Manager Add Manual Diff Complete Total Counted 100 Seg Neuts % (Manual) 71.0 H Band Neutrophils % 6.0 Lymphocytes % (Manual) 13.0 L Reactive Lymphs % (Man) 0 Monocytes % (Manual) 7.0 Eosinophils % (Manual) 1.0 Basophils % (Manual) 2.0 H Metamyelocytes % 0 Myelocytes % 0 Promyelocytes % 0 Blast Cells % 0 Nucleated RBC % 3.0 H Seg Neutrophils # Man 3.1 Band Neutrophils # 0.3 Lymphocytes # (Manual) 0.6 L Abs React Lymphs (Man) 0.0 Monocytes # (Manual) 0.3 Eosinophils # (Manual) 0.0 Basophils # (Manual) 0.1 Metamyelocytes # 0.0 Myelocytes # 0.0 Promyelocytes # 0.0 Blast Cells # 0.0 WBC Morphology Not Reportable Hypersegmented Neuts Not Reportable Hyposegmented Neuts Not Reportable Hypogranular Neuts Not Reportable Smudge Cells Not Reportable Toxic Granulation Not Reportable Toxic Vacuolation Not Reportable Dohle Bodies Not Reportable Pelger-Huet Anomaly Not Reportable Asaf Rods Not Reportable Platelet Estimate Consistent w auto Clumped Platelets Not Reportable Plt Clumps, EDTA Not Reportable Large Platelets Not Reportable Giant Platelets Not Reportable Platelet Satelliting Not Reportable Plt Morphology Comment Not Reportable RBC Morphology Not Reportable Dimorphic RBCs Not Reportable Polychromasia Not Reportable Hypochromasia Not Reportable Poikilocytosis Not Reportable Anisocytosis 1+ Microcytosis Not Reportable Macrocytosis Not Reportable Spherocytes Not Reportable Pappenheimer Bodies Not Reportable Sickle Cells Not Reportable Target Cells Few Tear Drop Cells Not Reportable Ovalocytes Not Reportable Stomatocytes 1+ Helmet Cells Not Reportable Shetty-[place] Bodies Not Reportable [place] Rings Not Reportable Slava Cells Not Reportable Bite Cells Not Reportable Crenated Cell Not Reportable Elliptocytes Not Reportable Acanthocytes (Spur) Not Reportable Rouleaux Not Reportable Hemoglobin C Crystals Not Reportable Schistocytes Not Reportable Malaria parasites Not Reportable Percent Retic Sesar Bodies Not Reportable Hem Pathologist Commnt No Sodium Potassium Chloride Carbon Dioxide Anion Gap BUN Creatinine Estimated GFR BUN/Creatinine Ratio Glucose Calcium Iron TIBC Ferritin Total Bilirubin AST ALT Alkaline Phosphatase Total Protein Albumin Albumin/Globulin Ratio Vitamin B12 657.7 Folate 20.00 Hepatitis A IgM Ab Hep Bs Antigen Hep B Core IgM Ab Hepatitis C Antibody 08/05/17 08/05/17 04:56 04:56 WBC RBC Hgb Hct MCV MCH MCHC RDW Plt Count [place] % (Auto) Add Manual Diff Total Counted Seg Neuts % (Manual) Band Neutrophils % Lymphocytes % (Manual) Reactive Lymphs % (Man) Monocytes % (Manual) Eosinophils % (Manual) Basophils % (Manual) Metamyelocytes % Myelocytes % Promyelocytes % Blast Cells % Nucleated RBC % Seg Neutrophils # Man Band Neutrophils # Lymphocytes # (Manual) Abs React Lymphs (Man) Monocytes # (Manual) Eosinophils # (Manual) Basophils # (Manual) Metamyelocytes # Myelocytes # Promyelocytes # Blast Cells # WBC Morphology Hypersegmented Neuts Hyposegmented Neuts Hypogranular Neuts Smudge Cells Toxic Granulation Toxic Vacuolation Dohle Bodies Pelger-Huet Anomaly Asaf Rods Platelet Estimate Clumped Platelets Plt Clumps, EDTA Large Platelets Giant Platelets Platelet Satelliting Plt Morphology Comment RBC Morphology Dimorphic RBCs Polychromasia Hypochromasia Poikilocytosis Anisocytosis Microcytosis Macrocytosis Spherocytes Pappenheimer Bodies Sickle Cells Target Cells Tear Drop Cells Ovalocytes Stomatocytes Helmet Cells Shetty-[place] Bodies [place] Rings Sl[place] Cells Bite Cells Crenated Cell Elliptocytes Acanthocytes (Spur) Rouleaux Hemoglobin C Crystals Schistocytes Malaria parasites Percent Retic Sesar Bodies Hem Pathologist Commnt Sodium 139 Potassium 3.5 L Chloride 99.5 Carbon Dioxide 26 Anion Gap 17 BUN 5 L Creatinine 0.6 L Estimated GFR > 60 BUN/Creatinine Ratio 8 Glucose 127 H Calcium 8.5 Iron TIBC Ferritin Total Bilirubin 1.70 H AST 117 H ALT 69 H Alkaline Phosphatase 74 Total Protein 6.2 L Albumin 3.9 Albumin/Globulin Ratio 1.7 Vitamin B12 Folate Hepatitis A IgM Ab Non-reactive Hep Bs Antigen Non-reactive Hep B Core IgM Ab Non-reactive Hepatitis C Antibody Non-reactive
[2017-08-06] MEDS: D5NS 1,000 ML IV SCH ×3 (02:47→13:38)
[2017-08-06 07:19] LABS: Basophils % (Auto) 0.7 % (0.0-1.8); Eosinophils # (Auto) 0.1 K/mm3 (0.0-0.4); Eosinophils % (Auto) 1.7 % (0.0-4.3); Hematocrit 34.8 % (35.5-45.6); Hemoglobin 11.9 gm/dl (11.8-15.2); Lymphocytes # (Auto) 0.9 K/mm3 (1.2-5.4); Lymphocytes % (Auto) 17.7 % (13.4-35.0); Mean Corpuscular HGB Conc 34 % (32-34); Mean Corpuscular Hemoglobin 37 pg (28-32); Mean Corpuscular Volume 108 fl (84-94); Monocytes # (Auto) 0.8 K/mm3 (0.0-0.8); Monocytes % (Auto) 15.6 % (0.0-7.3); Red Blood Count 3.23 M/mm3 (3.65-5.03); Red Cell Distribution Width 13.2 % (13.2-15.2)
[2017-08-06 07:31] LABS: Platelet Count 50 K/mm3 (140-440)
[2017-08-06 07:36] LABS: BUN/Creatinine Ratio 7; Blood Urea Nitrogen 4 mg/dL (9-20); Calcium 8.8 mg/dL (8.4-10.2); Hemolysis Index 14
[2017-08-06] MEDS: FOLVITE PO SCH (11:10)
--- NOTE | 2017-08-06 11:33 | Discharge Summary ---
Providers - Providers Date of Admission: 08/04/17 09:37 Date of discharge: 08/06/17 Attending physician: SHAYLA FLOR 08/04/17 07:16 Consult to Mental Health [CONS] Urgent Reason For Exam: psych Place consult to:: account development specialist lactation nurse Notified:: awaiting call back 08/04/17 08:24 Consult to Physician [CONS] Urgent Consulting Provider: SUJIT ALFARO Reason For Exam: thrombocytopenia Place consult to:: HEMATOLOGY Notified:: yes Primary care physician: SOLIS BOSS Hospitalization Reason for admission: alcohol abuse and severe thrombocytopenia Condition: Fair Hospital course: 42-year-old white male with history of alcohol abuse was admitted with the severe thrombocytopenia Hematology consult was obtained No specific recommendations as the patient was not bleeding His platelet count gradually started improving and today it's 50,000 Patient has no specific complaints He wants to go He is medically stable Had a long discussion with the patient regarding complete abstinence from alcohol Follow up with his primary care physician in one week Although he was placed on CIWA protocol, he was not in any significant withdrawal except mild tremors of outstretched hands which have completely resolved Disposition: DC-01 TO HOME OR SELFCARE Core Measure Documentation - Palliative Care Palliative Care/ Comfort Measures: Not Applicable - Core Measures Any of the following diagnoses?: none Exam - Constitutional Vitals: Temp Pulse Resp BP Pulse Ox 98.4 F 96 H 18 153/105 98 08/06/17 08:07 08/06/17 08:07 08/06/17 08:07 08/06/17 08:07 08/06/17 08:07 General appearance: Present: no acute distress - EENT Eyes: Present: PERRL, EOM intact ENT: hearing intact, clear oral mucosa - Neck Neck: Present: supple, normal ROM - Respiratory Respiratory effort: normal Respiratory: bilateral: CTA - Cardiovascular Rhythm: regular Heart Sounds: Present: S1 & S2 - Extremities Extremities: No edema - Abdominal General gastrointestinal: Present: soft, non-tender. Absent: hepatomegaly, splenomegaly - Rectal Rectal Exam: deferred - Musculoskeletal Musculoskeletal: strength equal bilaterally - Neurologic Neurologic: moves all extremities Plan Activity: advance as tolerated Weight Bearing Status: Full Weight Bearing Diet: regular Additional Instructions: Strictly avoid alcohol Follow up with: PRIMARY CARE, [Referring] - 3-5 Days
--- NOTE | 2017-08-06 14:04 | Hem/Onc Progress Note ---
Subjective Date of service: 08/06/17 Interval history: - Platelets are improving. has some ecchymosis on his flank - does not remember how he got it. - I talked to him about his drinking - OK for d/c in am from heme standpoint, if platelets continue to improve Objective - Constitutional Vitals: Last Vital Signs Temp 98.4 F 08/06/17 08:07 Pulse 96 H 08/06/17 08:07 Resp 18 08/06/17 08:07 BP 153/105 08/06/17 08:07 Pulse Ox 98 08/06/17 08:07 General appearance: no acute distress - EENT Eyes: PERRL, EOM intact ENT: hearing intact, clear oral mucosa, dentition normal - Neck Neck: supple, normal ROM - Respiratory Respiratory effort: Positive: normal Respiratory: bilateral: CTA - Cardiovascular Rhythm: regular Extremities: no ischemia, No edema - Labs Lab Results: Laboratory Results - last 24 hr 08/06/17 08/06/17 06:40 06:40 WBC 5.2 RBC 3.23 L Hgb 11.9 Hct 34.8 L MCV 108 H MCH 37 H MCHC 34 RDW 13.2 Plt Count 50 L Lymph % (Auto) 17.7 [place] % (Auto) 15.6 H Eos % (Auto) 1.7 Baso % (Auto) 0.7 Lymph # 0.9 L [place] # 0.8 Eos # 0.1 Baso # 0.0 Seg Neutrophils % 64.3 Seg Neutrophils # 3.4 Sodium 141 Potassium 3.6 Chloride 101.5 Carbon Dioxide 26 Anion Gap 17 BUN 4 L Creatinine 0.6 L Estimated GFR > 60 BUN/Creatinine Ratio 7 Glucose 96 Calcium 8.8
[2017-08-06 17:36] VITALS: BP 142/94
--- NOTE | 2017-08-07 04:40 | Consultation ---
REFERRING PHYSICIAN: Dr. Radha Hernandez. REASON FOR CONSULTATION: Thrombocytopenia. HISTORY OF PRESENT ILLNESS: The patient is a 42-year-old male, who was admitted to the hospital with evidence of pain in the right side of the chest with multiple rib fractures along with ecchymosis and along with alcohol withdrawal. He has a history of alcoholism, has been taking heavily. He presented to the hospital after he woke up from a long night of drinking and possibly doing drugs with evidence of ecchymosis on his chest wall. He denies any rectal bleeding. He was found to have platelet count of 38,000, MCV 109, hemoglobin 12.8, and white count 5.0. He was admitted for alcohol withdrawal and thrombocytopenia. The patient was in the hospital, in the ER 2 days ago with coughing and at that time his platelets were 46,000. He was at that time discharged from the hospital with some Zofran, morphine. PAST MEDICAL HISTORY: Positive for alcohol abuse. He denies any obvious liver disease. REVIEW OF SYSTEMS: Positive for loss of appetite, malaise, weakness, occasional cough and shortness of breath. SOCIAL HISTORY: Positive for alcohol abuse. He does not smoke. PHYSICAL EXAMINATION: GENERAL: The patient is awake, seems to be on yawning a lot and sleepy. HEENT: Unremarkable. CHEST: Clear bilaterally. CARDIOVASCULAR: Regular rate and rhythm. ABDOMEN: Soft, nontender. CHEST WALL: Ecchymosis on the chest wall, mostly on the right side. LABORATORY DATA: The patient's hemoglobin is 12.8, white count 5.0, platelets of 34,000. INR is ____. Chemistries show elevated AST of 168 and ALT 82. ASSESSMENT: 1. Thrombocytopenia, possibly related to alcohol abuse with macrocytosis, rule out cyanosis of the liver. 2. Alcohol abuse. PLAN: We will monitor platelets. No need for transfusion currently. If he drops below 20 or starts having drop in hemoglobin or extensive bleeding, we will transfuse him at that time. If platelets continue to drop, may need to do further workup, which may include bone marrow biopsy. We will check B12, folate and do anemia workup on him. JOB# [id number] JANE/LARRY
== END 2017-08-06 19:40 | disposition home or self-care (01) | DRG 897 ==
LOC: ED 17:04 → 3A 08-04 09:37
PROVIDERS: ADMIT Internal Medicine; ATTEND Internal Medicine
DX: F10.239 Alcohol dependence with withdrawal, unspecified (principal); D69.6 Thrombocytopenia, unspecified; Y90.9 Presence of alcohol in blood, level not specified
CPT/HCPCS: 36415; 70450; 71260; 74177; 80048; 80053; 80074; 81001; 82040; 82140; 82550; 82607; 82728; 82747; 83550; 83735; 84100; 85007; 85025; 85027; 85045; 85610; 85730; 86850; 86900; 86901; 96365; 96375; J1650; J2060; J2270; J3411; J3475; J7030; J7042; Q9967